=== PATIENT | female | born 1965 | race Caucasian/White ===

== ENCOUNTER 2018-10-08 19:18 | Emergency (ER) | payer OTHER ==
[~2018-10-08] VITALS: Ht 177.8 cm; Wt 83.0 kg
[2018-10-08] MEDS ORDERED: LIDOCAINE-MPF 1%, 5ML INFIL ONE (19:30)
[2018-10-08] MEDS ORDERED: PLEASE ENTER HEIGHT AND WEIGHT MC SCH (20:00)
[2018-10-08] MEDS ORDERED: ONDANSETRON 2MG/ML, 2ML IVPush ONE (20:00)
[2018-10-08] MEDS ORDERED: CLINDAMYCIN PMX 600MG/50ML 50 ML IV ONE (20:00)
[2018-10-08] MEDS ORDERED: PLEASE ENTER ALLERGIES MC SCH (20:00)
[2018-10-08] MEDS ORDERED: SODIUM CHLORIDE FLUSH 10ML SYR IVF ONE (20:00)
[2018-10-08] MEDS ORDERED: DIPH,PERTUSS(ACELL),TET VAC/PF 0.5 ML IM-VACC ONE ×2 (20:00→20:01)
[2018-10-08] MEDS ORDERED: ONDANSETRON 2MG/ML, 2ML ONE (20:01)
[2018-10-08] MEDS ORDERED: MORPHINE SULFATE 4 MG/ML, 1ML ONE ×2 (20:01→20:56)
[2018-10-08] MEDS: MORPHINE SULFATE 4 MG/ML, 1ML IVPush PRN ×2 (20:10→21:01)
[2018-10-08] MEDS ORDERED: CLINDAMYCIN PMX 600MG/50ML 50 ML ONE (20:12)
[2018-10-08 20:30] LABS: BASOPHILS # (AUTO) 0.02 x10^3/uL (0-0.1); BASOPHILS % (AUTO) 0 % (0-1); EOSINOPHILS # (AUTO) 0.02 x10^3/uL (0-0.4); EOSINOPHILS % (AUTO) 0 % (1-7); LYMPHOCYTES # (AUTO) 1.56 x10^3/uL (1-3.4); LYMPHOCYTES % (AUTO) 9 % (22-44); MD NO; MEAN CORPUSCULAR HEMOGLOBIN 32.7 pg (27.0-34.8); MEAN CORPUSCULAR HGB CONC 34.6 g/dL (32.4-35.8); MEAN CORPUSCULAR VOLUME 94.4 fL (80-100); MEAN PLATELET VOLUME 9.1 fL (7.4-10.4); MONOCYTES # (AUTO) 0.74 x10^3/uL (0.2-0.8); MONOCYTES % (AUTO) 4 % (2-9); NEUTROPHILS % (AUTO) 86 % (42-75); PLATELET COUNT 314 x10^3/uL (130-400); RED BLOOD COUNT 4.48 x10^6/uL (3.82-5.3); RED CELL DISTRIBUTION WIDTH 12.7 % (9.6-15.2)
[2018-10-08 20:39] LABS: ALANINE AMINOTRANSFERASE 12 U/L (12-78); ALBUMIN 3.5 g/dL (3.4-5.0); ANION GAP 13 mmol/L (5-15); CALCIUM 9.3 mg/dL (8.5-10.1); CHLORIDE 99 mmol/L (98-107); CREATININE 0.98 mg/dL (0.55-1.02)
[2018-10-08 20:42] LABS: ALKALINE PHOSPHATASE 106 U/L (45-117); BILIRUBIN,TOTAL 0.7 mg/dL (0.2-1.0); TOTAL PROTEIN 7.5 g/dL (6.4-8.2)
[2018-10-08] MEDS ORDERED: SODIUM CHLORIDE 0.9% 1,000ML IVBOLUS ONE (21:00)
[2018-10-08 21:16] LABS: ACETONE, SERUM Moderate(40mg/dL) mg/dL (Negative)
[2018-10-08] MEDS ORDERED: OMNIPAQUE 350 MG/ML, 100ML BOTTLE ONE (21:22)
[2018-10-08 21:29] LABS: O2 FLOW 0 L/min; PH, VENOUS 7.408 pH (7.320-7.420)
[2018-10-08] MEDS ORDERED: LIDOCAINE-MPF 1%, 5ML ONE (22:12)
[2018-10-08] MEDS ORDERED: HYDROmorphone 2 MG/ML, 1ML ONE (22:18)
[2018-10-08] MEDS ORDERED: LORazepam 2 MG/ML, 1ML ONE (22:18)
[2018-10-08 22:49] VITALS: BP 145/90
[2018-10-08] MEDS ORDERED: SODIUM CHLORIDE FLUSH 10ML SYR IVF PRN (23:00)
[2018-10-09] MEDS ORDERED: HYDROmorphone 2 MG/ML, 1ML IV ONE
[2018-10-09] MEDS ORDERED: LORazepam 2 MG/ML, 1ML IVPush ONE
== END 2018-10-08 23:15 | disposition left against medical advice (07) ==
LOC: ED 22:00
DX: L02.31 Cutaneous abscess of buttock (principal); F17.200 Nicotine dependence, unspecified, uncomplicated
CPT/HCPCS: 10060; 36415; 72193; 80053; 82010; 82803; 82962; 83605; 83930; 85025; 87040; 90471; 90715; 96365; 96366; 96375; 96376; 99284; J2405; J7030; Q9967